=== PATIENT | male | born 1980 | race Caucasian/White ===

== ENCOUNTER 2021-01-01 21:19 | Emergency (ER) | payer BC ==
[~2021-01-01] VITALS: Ht 170.2 cm; Wt 84.8 kg
[2021-01-01 23:10] VITALS: BP 124/68
--- NOTE | 2021-01-01 23:11 | NUR ---
Patient discharged to home in stable condition. Written and verbal after care instructions given. Patient verbalizes understanding of instructions. Stressed follow up or return to ER for worsening s/s. VSS. Steady gait. No neurological deficits. All belongings with patient.
== END 2021-01-01 23:12 | disposition home or self-care (01) ==
LOC: ER 21:19
DX: H57.02 Anisocoria (principal); I10 Essential (primary) hypertension; F90.9 Attention-deficit hyperactivity disorder, unspecified type
CPT/HCPCS: A4663